=== PATIENT | male | born 1995 | race Caucasian/White ===

== ENCOUNTER 2023-11-24 17:55 | Emergency (ER) | payer BC ==
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
[2023-11-24 18:46] VITALS: RESP 18
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
[2023-11-24 19:38] VITALS: BP 114/79; PULSE 74; TEMP 98
== END 2023-11-24 19:38 | disposition home or self-care (01) ==
LOC: EC 17:55
DX: T75.1XXA Unspecified effects of drowning and nonfatal submersion, initial encounter (principal); F17.290 Nicotine dependence, other tobacco product, uncomplicated
CPT/HCPCS: 71046; 99284